=== PATIENT | female | born 1975 | race Caucasian/White ===

== ENCOUNTER 2017-02-16 12:29 | Emergency (ER) | payer OTHER ==
[~2017-02-16] VITALS: Ht 165.1 cm; Wt 95.0 kg
[2017-02-16 12:37] VITALS: BP 109/69; PULSE 73; RESP 18; TEMP 98.3; O2SAT 98
[2017-02-16 12:41] VITALS: BP 109/69; PULSE 72; RESP 18; O2SAT 99
--- NOTE | 2017-02-16 12:47 | PD ---
HPI Chief Complaint: Fall Time Seen by Provider: 12:33 Travel History International Travel<30 days: No Contact w/Intl Traveler<30days: No Traveled to known affect area: No History of Present Illness HPI 42-year-old female who presents via EMS after she slipped and fell on wet water at the hotel. Patient states she is going to get ice when she slipped on a patch of water and fell backwards striking her back of her head and her lower tailbone. There is no reported loss of conscious. There is no reported extremity paresthesias. There are no other complaints. PFSH Past Medical History ?: Not Social History Tobacco Use: No Allergies-Medications (Allergen,Severity, Reaction): Coded Allergies: No Known Allergies (Unverified , 02/16/17) Reported Meds & Prescriptions Reported Meds & Active Scripts Active Zofran (Ondansetron HCl) 4 Mg Tab 4 Mg PO Q8HR PRN Lortab (Hydrocodone-Acetaminophen) 5-325 Mg Tab 1 Tab PO Q6H PRN Review of Systems Except as stated in HPI: all other systems reviewed are Neg HENT: Positive: Headaches, Other (mild photophobia), No: Lightheadedness, Neck Stiffness, Neck Pain (history occiput) Cardiovascular: No: Chest Pain or Discomfort Gastrointestinal: No: Abdominal Pain Musculoskeletal: Positive: Pain ("tailbone".), No: Weakness Neurologic: Positive: Headache (posterior occiput), No: Weakness, Dizziness Physical Exam Narrative GENERAL: Well-nourished, well-developed patient. SKIN: Focused skin assessment warm/dry. HEAD: Normocephalic. Patient has a small raised area to the posterior occiput. There is no bony deformity. EYES: No scleral icterus. No injection or drainage. NECK: Supple, trachea midline. No posterior spinous tenderness down her cervical spine. No paracervical tenderness. CARDIOVASCULAR: Regular rate and rhythm without murmurs, gallops, or rubs. MUSCULOSKELETAL: No cyanosis, or edema. BACK: No midline spine tenderness. Posterior spinous tenderness at the coccyx level. NEUROLOGICAL: Awake and alert. Cranial nerves II through XII intact. Motor grossly within normal limits. Five out of 5 muscle strength in all muscle groups. Normal speech. Data Data Last Documented VS Vital Signs Date Time Temp Pulse Resp B/P Pulse Ox O2 Delivery O2 Flow Rate FiO2 02/16/17 12:41 72 18 109/69 99 Room Air 02/16/17 12:[address] Brain W/O Iv Contrast(Rout) (02/16/17 12:38) Sacrum And Coccyx (02/16/17 ) Spine, Lumbar - Ltd (Ap & Lat) (02/16/17 12:38) Ondansetron Inj (Zofran Inj) (02/16/17 13:45) Hydromorphone Pf Inj (Dilaudid Pf Inj) (02/16/17 13:45) MDM Medical Decision Making Medical Screen Exam Complete: Yes Emergency Medical Condition: Yes Differential Diagnosis Concussion versus intracranial hemorrhage versus coccyx fracture versus contusion Narrative Course 42-year-old female who status post slip and fall while denies at the hotel. The patient is slipped and struck the back of her head and lower coccyx area. The patient's head CT shows no evidence of acute intra-cranial neuropathies. He plain x-ray show no evidence of acute bony injury. I did inform patient is possibility there is a slight hairline fracture we just don't see initially on x -ray. She is instructed to use ice 20 for 48 hours followed by moist heat. If she still has discomfort in a week, she should follow up with primary care physician. She has been given an injection of dye allotted and Zofran as she has a long car ride back home to [facility]. The prescription Zofran and Lortab for 3 days. He is instructed also to use ibuprofen and use the Lortab only if ibuprofen does not control her pain. Diagnosis Primary Impression: Closed head injury Additional Impressions: Coccyx contusion status post slip and fall Patient Instructions: Narcotic given in the ED Additional Instructions: Use ibuprofen and if pain is worse, add Lortab. No heavy lifting times one week. If pain continues after 1 week, follow up with her primary care physician. Med/Other Pt SpecificInfo: Prescription(s) given Scripts Ondansetron (Zofran)4 Mg Tab4 Mg PO Q8HR PRN (NAUSEA OR VOMITING) #10 TAB Ref 0 Prov:Anish Figueroa MD 02/16/17 Hydrocodone-Acetaminophen (Lortab)5-325 Mg Tab1 Tab PO Q6H PRN (PAIN) #10 TAB Ref 0 Prov:Anish Figueroa MD 02/16/17 Disposition: 01 DISCHARGE HOME Condition: Stable Anish Figueroa MD Feb 16, 2017 12:47
--- NOTE | 2017-02-16 13:19 | RADRPT ---
EXAM DATE/TIME: 02/16/2017 13:02 [facility] COMPARISON: No previous studies available for comparison. INDICATIONS : Trauma; fall, hit back of head on tile floor. RADIATION DOSE: 42.00 CTDIvol (mGy) MEDICAL HISTORY : None SURGICAL HISTORY : None. ENCOUNTER: Initial ACUITY: 1 day PAIN SCALE: 7/10 LOCATION: occipital TECHNIQUE: Multiple contiguous axial images were obtained of the head. Using automated exposure control and adj ustment of the mA and/or kV according to patient size, radiation dose was kept as low as reasonably a chievable to obtain optimal diagnostic quality images. FINDINGS: CEREBRUM: The ventricles are normal for age. No evidence of midline shift, mass lesion, hemorrhage or acute in farction. No extra-axial fluid collections are seen. POSTERIOR FOSSA: The cerebellum and brainstem are intact. The 4th ventricle is midline. The cerebellopontine angle i s unremarkable. EXTRACRANIAL: The visualized portion of the orbits is intact. SKULL: The calvaria is intact. No evidence of skull fracture. CONCLUSION: No acute disease. No evidence of focal edema, contusion or hemorrhage. No evidence of action. Kin Morgan MD on February 16, 2017 at 13:16 Board Certified Radiologist. This report was verified electronically.
[2017-02-16] MEDS ORDERED: ZOFR4TAB PO (13:41)
[2017-02-16] MEDS ORDERED: HYDR-3533 PO (13:41)
[2017-02-16] MEDS ORDERED: ONDANSETRON HCL 4 MG/2 ML VIAL IM ONE (13:45)
[2017-02-16] MEDS ORDERED: HYDROmorphone HCL PF 1 MG/ML VIAL IM ONE (13:45)
--- NOTE | 2017-02-16 13:45 | RADRPT ---
EXAM DATE/TIME: 02/16/2017 13:10 [facility] COMPARISON: No previous studies available for comparison. INDICATIONS : Lower back pain post fall today. MEDICAL HISTORY : None. SURGICAL HISTORY : None. ENCOUNTER: Initial ACUITY: 1 day PAIN SCORE: 5/10 LOCATION: Bilateral lumbar spine. FINDINGS: No appreciable compression deformities, spondylolisthesis, or spondylolysis is seen. The disc spaces are well-maintained for technique. Slight osteophyte formation is identified and there are calcifica tions partially visualized in the right upper quadrant suspicious for gallstones. CONCLUSION: Minimal degenerative changes and probable gallstones. Geoff Toro MD on February 16, 2017 at 13:43 Board Certified Radiologist. This report was verified electronically.
--- NOTE | 2017-02-16 13:46 | RADRPT ---
EXAM DATE/TIME: 02/16/2017 13:11 [facility] COMPARISON: No previous studies available for comparison. INDICATIONS : Lower back pain post fall today. MEDICAL HISTORY : None. SURGICAL HISTORY : None. ENCOUNTER: Initial ACUITY: 1 day PAIN SCORE: 5/10 LOCATION: Bilateral sacrum and coccyx. FINDINGS: No definite fractures, or dislocations are identified. No definite lytic or sclerotic lesion is seen . CONCLUSION: Unremarkable study. Geoff oTro MD on February 16, 2017 at 13:44 Board Certified Radiologist. This report was verified electronically.
== END 2017-02-16 14:17 | disposition home or self-care (01) ==
LOC: NEPD 12:29
DX: S09.90XA Unspecified injury of head, initial encounter (principal); S30.0XXA Contusion of lower back and pelvis, initial encounter; W01.0XXA Fall on same level from slipping, tripping and stumbling without subsequent striking against object, initial encounter
CPT/HCPCS: 70450; 72100; 72220; 96372; 99284; J1170; J2405